=== PATIENT | male | born 1965 | race Two or more races ===

== ENCOUNTER 2021-10-21 20:47 | Emergency (ER) | payer BC, OTHER ==
[~2021-10-21] VITALS: Ht 175.3 cm; Wt 122.5 kg
[2021-10-22 06:19] VITALS: BP 135/71
== END 2021-10-22 06:19 | disposition home or self-care (01) ==
LOC: ER 20:47
DX: S89.91XA Unspecified injury of right lower leg, initial encounter (principal); E11.9 Type 2 diabetes mellitus without complications; E78.5 Hyperlipidemia, unspecified; X58.XXXA Exposure to other specified factors, initial encounter; Y93.89 Activity, other specified; Y92.89 Other specified places as the place of occurrence of the external cause; Y99.8 Other external cause status
CPT/HCPCS: 73560